=== PATIENT | male | born 1980 | race Hispanic/Latino ===

== ENCOUNTER 2021-05-25 03:22 | Emergency (ER) | payer OTHER ==
[2021-05-25] MEDS ORDERED: Dexamethasone 10 MG/ML VIAL ONE (04:06)
== END 2021-05-25 04:15 | disposition home or self-care (01) ==
LOC: ERS 03:22
DX: J02.0 Streptococcal pharyngitis (principal); E11.9 Type 2 diabetes mellitus without complications; F41.9 Anxiety disorder, unspecified; F17.290 Nicotine dependence, other tobacco product, uncomplicated; Z79.84 Long term (current) use of oral hypoglycemic drugs; Z79.899 Other long term (current) drug therapy
CPT/HCPCS: 99282; J1100

== ENCOUNTER 2022-12-08 11:21 | Outpatient (CLI) | payer BC | END 2022-12-08 11:22 | disposition home or self-care (01) | LOC: BICRAD 11:21 | PROVIDERS: ATTEND Family Medicine | DX: M79.672 Pain in left foot (principal) ==